=== PATIENT | male | born 1965 | race African-American/Black ===

== ENCOUNTER 2021-11-05 19:33 | Emergency (ER) | payer MEDICAID, OTHER ==
[~2021-11-05] VITALS: Ht 172.7 cm; Wt 86.2 kg
[2021-11-05] MEDS ORDERED: SODIUM CHLORIDE 0.9% 1,000 ML IV ONE (20:00)
[2021-11-05] MEDS ORDERED: ONDANSETRON HCL 4 MG/2 ML VIAL IV ONE (20:00)
[2021-11-05 20:47] LABS: BUN/Creatinine Ratio 17.3; Calcium 8.7 mg/dL (8.5-10.1); Potassium 4.1 mmol/L (3.5-5.1)
[2021-11-05 23:23] LABS: Basophils # (auto) 0.1 10 ^3/uL (0-0.2); Basophils % (auto) 0.8 % (0.0-2.0); Eosinophils # (auto) 0.5 10 ^3/uL (0-0.8); Eosinophils % (auto) 6.6 % (0.0-7.0); Hematocrit 40.9 % (41.0-53.0); Hemoglobin 13.5 g/dL (13.5-17.5); Lymphocytes # (auto) 2.2 10 ^3/uL (0.4-5.4); Lymphocytes % (auto) 29.8 % (10.0-50.0); Mean Corpuscular Hemoglobin 27.3 pg (28.0-32.0); Mean Corpuscular Hgb Conc. 33.1 g/dL (32.0-36.0); Mean Corpuscular Volume 82.4 fL (80.0-100.0); Monocytes # (auto) 0.8 10 ^3/uL (0-1.3); Monocytes % (auto) 11.4 % (0.0-12.0); Neutrophils # (auto) 3.7 10 ^3/uL (1.6-8.6); Neutrophils % (auto) 51.4 % (37.0-80.0); Nucleated Red Blood Cells % 0.1 %; Red Blood Cells 4.97 10^6/uL (4.5-5.90); White Blood Cell 7.3 10^3/uL (4.4-10.8)
[2021-11-05 23:31] LABS: Urine Bacteria NONE SEEN /hpf (None Seen); Urine Blood Negative /uL (Negative); Urine Mucus FEW (None Seen); Urine Specific Gravity 1.024 (1.001-1.035); Urine WBC 38 /hpf (0 - 3)
[2021-11-06 03:57] VITALS: BP 133/94
== END 2021-11-06 04:00 | disposition home or self-care (01) ==
LOC: ER 19:33
DX: K40.90 Unilateral inguinal hernia, without obstruction or gangrene, not specified as recurrent (principal); K42.9 Umbilical hernia without obstruction or gangrene; R19.7 Diarrhea, unspecified; Z20.822 Contact with and (suspected) exposure to COVID-19
CPT/HCPCS: 36415; 74176; 80048; 81001; 82150; 83605; 83690; 84484; 87426; 96361; 96374; 99284; J2405; J7030

== ENCOUNTER 2023-09-07 09:28 | Inpatient (IN) | payer MEDICAID ==
[~2023-09-07] VITALS: Ht 175.3 cm; Wt 84.6 kg
[2023-09-07 10:30] LABS: Basophils # (auto) 0 10 ^3/uL (0-0.2); Basophils % (auto) 0.2 % (0.0-2.0); Eosinophils # (auto) 0 10 ^3/uL (0-0.8); Hematocrit 39.3 % (41.0-53.0); Lymphocytes # (auto) 1.2 10 ^3/uL (0.4-5.4); Lymphocytes % (auto) 7.6 % (10.0-50.0); Mean Corpuscular Hemoglobin 27.6 pg (28.0-32.0); Mean Corpuscular Volume 83.8 fL (80.0-100.0); Monocytes # (auto) 0.8 10 ^3/uL (0-1.3); Neutrophils # (auto) 13.9 10 ^3/uL (1.6-8.6); Neutrophils % (auto) 87.2 % (37.0-80.0); Red Blood Cells 4.69 10^6/uL (4.5-5.90); Red Cell Distribution Width 14.4 % (11.8-14.3); White Blood Cell 15.9 10^3/uL (4.4-10.8)
[2023-09-07 10:53] LABS: INR 1.26 (0.9-1.15)
[2023-09-07 11:02] LABS: Alanine Aminotransferase 20 U/L (7-40); Alkaline Phosphatase 55 U/L (46-116); Anion Gap 4 (5-15); BUN/Creatinine Ratio 12.6 (10.0-20.0); Blood Urea Nitrogen 18 mg/dL (9-23); Carbon Dioxide 28 mmol/L (20-30); Chloride 106 mmol/L (98-107); Glucose 153 mg/dL (74-106); Potassium 3.5 mmol/L (3.5-5.1); Sodium 138 mmol/L (136-145)
[2023-09-07 11:03] LABS: Albumin 3.9 g/dL (3.2-4.8); Aspartate Aminotransferase 20 U/L (13-40); Bilirubin, Total 0.7 mg/dL (0.2-1.0); Total Protein 6.8 g/dL (5.7-8.2)
[2023-09-07] MEDS: IOHEXOL 350 MG/ML 100ML IJ ONE (11:36)
[2023-09-07 11:38] VITALS: O2SAT 96
[2023-09-07] MEDS: cefTRIAXone 1GM/50ML D5W 50 ML IV ONE (12:27)
[2023-09-07] MEDS: AZITHROMYCIN 500MG/ 250ML 250 ML IV ONE (12:56)
[2023-09-07 13:01] LABS: COVID19 ANTIGEN SOFIA FIA NEGATIVE (NEGATIVE)
[2023-09-07 13:02] LABS: Rapid Influenza A Negative (Negative); Rapid Influenza B Negative (Negative)
[2023-09-07] MEDS: SODIUM CHLORIDE 0.9% 2,000 ML IV ONE (15:11)
[2023-09-07] MEDS: ACETAMINOPHEN 325 MG TAB PO ONE ×2 (15:11)
[2023-09-07 15:15] LABS: Urine Bacteria NONE SEEN /hpf (None Seen); Urine Blood TRACE /uL (Negative); Urine Clarity Clear (Clear); Urine Color Colorless (Yellow); Urine Protein, UAD 1+ (Negative); Urine Urobilinogen Normal (Negative); Urine WBC 2 /hpf (0 - 3)
[2023-09-07 15:20] LABS: Urine Specific Gravity > 1.050 (1.001-1.035)
[2023-09-07] MEDS ORDERED: NITROGLYCERIN 0.4 MG SL TAB SL PRN (17:30)
[2023-09-07] MEDS ORDERED: VANCOMYCIN PER PHARMACY 0 MG IV SCH (17:30)
[2023-09-07] MEDS ORDERED: MORPHINE SULFATE INJ 2 MG/ml SYRG IV PRN (17:30)
[2023-09-07] MEDS: ENOXAPARIN SOD 40 MG/0.4 ML SYRINGE SC ONE (17:30)
[2023-09-07] MEDS: MEROPENEM 1GM IVPB 50 ML IV ONE (17:41)
[2023-09-07] MEDS: VANCOMYCIN 1GM/200ML 200 ML IV ONE (17:50)
[2023-09-07] MEDS: SODIUM CHLORIDE 0.9% 1,000 ML IV SCH (18:51)
[2023-09-07] MEDS ORDERED: DEXTROSE (50%) 50ML SYRG IV PRN (19:15)
[2023-09-07 19:48] VITALS: PULSE 98; RESP 27; O2SAT 95
[2023-09-07 20:28] LABS: Magnesium 1.9 mg/dL (1.6-2.6)
[2023-09-07 20:53] LABS: Erythrocyte Sedimentation Rate 21 mm/hr (0-20)
[2023-09-07] MEDS: InsuLIN REG 1unit/0.01ml Soln (100units/ml) SC SCH (22:00)
[2023-09-07] MEDS: ACCU-CHEK COMFORT CURVE STRIP VI SCH (22:28)
[2023-09-07] MEDS: NYSTATIN (MOUTH-THROAT) 500,000 UNITS/5 ML SUSP MT SCH (23:17)
[2023-09-08] VITALS (7 sets, daily range): BP systolic 115–134; BP diastolic 63–88; PULSE 78–99; RESP 16–20; TEMP 97.6–98.6; O2SAT 91–99
[2023-09-08 01:28] LABS: Creatinine, Urine 102.72 mg/dL (30.0-125.0)
[2023-09-08] MEDS: MEROPENEM 1GM IVPB 50 ML IV SCH (01:46)
[2023-09-08 05:47] LABS: Basophils # (auto) 0 10 ^3/uL (0-0.2); Basophils % (auto) 0.1 % (0.0-2.0); Eosinophils # (auto) 0 10 ^3/uL (0-0.8); Eosinophils % (auto) 0.3 % (0.0-7.0); Hematocrit 36.2 % (41.0-53.0); Hemoglobin 11.8 g/dL (13.5-17.5); Lymphocytes # (auto) 1.1 10 ^3/uL (0.4-5.4); Lymphocytes % (auto) 8.2 % (10.0-50.0); Mean Corpuscular Hemoglobin 27.3 pg (28.0-32.0); Mean Corpuscular Hgb Conc. 32.6 g/dL (32.0-36.0); Monocytes # (auto) 0.8 10 ^3/uL (0-1.3); Monocytes % (auto) 5.8 % (0.0-12.0); Neutrophils # (auto) 11.8 10 ^3/uL (1.6-8.6); Neutrophils % (auto) 85.6 % (37.0-80.0); Red Blood Cells 4.31 10^6/uL (4.5-5.90); Red Cell Distribution Width 14.1 % (11.8-14.3); White Blood Cell 13.8 10^3/uL (4.4-10.8)
[2023-09-08 06:15] LABS: Alanine Aminotransferase 16 U/L (7-40); Albumin 3.4 g/dL (3.2-4.8); Alkaline Phosphatase 64 U/L (46-116); Anion Gap 6 (5-15); Aspartate Aminotransferase 14 U/L (13-40); BUN/Creatinine Ratio 14.6 (10.0-20.0); Blood Urea Nitrogen 14 mg/dL (9-23); Calcium 8.6 mg/dL (8.7-10.4); Carbon Dioxide 23 mmol/L (20-30); Chloride 111 mmol/L (98-107); Glucose 116 mg/dL (74-106); Potassium 3.4 mmol/L (3.5-5.1); Sodium 140 mmol/L (136-145)
[2023-09-08 06:16] LABS: Bilirubin, Total 0.4 mg/dL (0.2-1.0)
[2023-09-08 09:08] LABS: Hepatitis B Core Total AB Negative (Negative)
[2023-09-08 09:29] LABS: Free T3 2.07 pg/mL (2.3-4.2)
[2023-09-08 09:31] LABS: Free T4 (Free Thyroxine) 0.87 ng/dL (0.89-1.76)
[2023-09-08] MEDS: POTASSIUM CHL 10 Meq TABLET PO ONE (10:58)
[2023-09-08] MEDS: AZITHROMYCIN 250 MG TAB PO SCH (10:58)
[2023-09-08] MEDS: ENOXAPARIN SOD 40 MG/0.4 ML SYRINGE SC SCH (10:59)
[2023-09-08 11:22] LABS: Hepatitis A Total Antibody Negative (Negative); Hepatitis B Surface Antibody Negative (Negative); Hepatitis B Surface Antigen Negative (Negative); Hepatitis C Antibody Negative (Negative)
[2023-09-08] MEDS: ACETAMINOPHEN 500 MG TAB PO PRN (12:17)
[2023-09-08] MEDS: VANCOMYCIN 1GM/200ML 200 ML IV SCH (18:06)
[2023-09-08] MEDS: HYDROcodone-ACET 5/325MG TAB PO PRN (21:32)
[2023-09-08] MEDS: TEMAZEPAM 15 MG CAP PO PRN (21:47)
[2023-09-09] VITALS (8 sets, daily range): BP systolic 108–144; BP diastolic 61–91; PULSE 70–100; RESP 17–20; TEMP 98.7–99.4; O2SAT 93–100
[2023-09-09 05:52] LABS: Basophils # (auto) 0 10 ^3/uL (0-0.2); Basophils % (auto) 0.1 % (0.0-2.0); Eosinophils # (auto) 0.2 10 ^3/uL (0-0.8); Eosinophils % (auto) 1.5 % (0.0-7.0); Hematocrit 37.5 % (41.0-53.0); Hemoglobin 12.1 g/dL (13.5-17.5); Lymphocytes # (auto) 1.2 10 ^3/uL (0.4-5.4); Lymphocytes % (auto) 9.7 % (10.0-50.0); Mean Corpuscular Hemoglobin 27.3 pg (28.0-32.0); Mean Corpuscular Hgb Conc. 32.4 g/dL (32.0-36.0); Mean Corpuscular Volume 84.2 fL (80.0-100.0); Monocytes # (auto) 0.8 10 ^3/uL (0-1.3); Monocytes % (auto) 6.3 % (0.0-12.0); Neutrophils % (auto) 82.4 % (37.0-80.0); Red Blood Cells 4.45 10^6/uL (4.5-5.90); Red Cell Distribution Width 14.1 % (11.8-14.3); White Blood Cell 12.1 10^3/uL (4.4-10.8)
[2023-09-09 05:57] LABS: Anion Gap 5 (5-15); Carbon Dioxide 23 mmol/L (20-30); Chloride 112 mmol/L (98-107); Potassium 4.1 mmol/L (3.5-5.1); Sodium 140 mmol/L (136-145)
[2023-09-09 05:59] LABS: Calcium 8.7 mg/dL (8.7-10.4)
[2023-09-09 06:03] LABS: BUN/Creatinine Ratio 12.7 (10.0-20.0); Blood Urea Nitrogen 10 mg/dL (9-23); Glucose 128 mg/dL (74-106)
[2023-09-09 06:04] LABS: Magnesium 1.8 mg/dL (1.6-2.6)
[2023-09-09 19:06] LABS: Chlamydia Trachomatis, NAA Negative (Negative); Neisseria gonorrhoeae, NAA Negative (Negative)
[2023-09-10] VITALS (7 sets, daily range): BP systolic 128–147; BP diastolic 78–82; PULSE 56–76; RESP 17–21; TEMP 97.9–98.9; O2SAT 93–98
[2023-09-10 06:14] LABS: Anion Gap 6 (5-15); Carbon Dioxide 24 mmol/L (20-30); Chloride 112 mmol/L (98-107); Potassium 3.9 mmol/L (3.5-5.1); Sodium 142 mmol/L (136-145)
[2023-09-10 06:15] LABS: Basophils # (auto) 0 10 ^3/uL (0-0.2); Basophils % (auto) 0.3 % (0.0-2.0); Calcium 8.3 mg/dL (8.7-10.4); Eosinophils # (auto) 0.3 10 ^3/uL (0-0.8); Eosinophils % (auto) 4.9 % (0.0-7.0); Hematocrit 36.3 % (41.0-53.0); Hemoglobin 12.1 g/dL (13.5-17.5); Lymphocytes # (auto) 1.4 10 ^3/uL (0.4-5.4); Lymphocytes % (auto) 20.2 % (10.0-50.0); Mean Corpuscular Hemoglobin 27.7 pg (28.0-32.0); Mean Corpuscular Hgb Conc. 33.2 g/dL (32.0-36.0); Mean Corpuscular Volume 83.5 fL (80.0-100.0); Monocytes # (auto) 0.7 10 ^3/uL (0-1.3); Neutrophils # (auto) 4.4 10 ^3/uL (1.6-8.6); Neutrophils % (auto) 64.6 % (37.0-80.0); Red Blood Cells 4.35 10^6/uL (4.5-5.90); Red Cell Distribution Width 13.7 % (11.8-14.3); White Blood Cell 6.8 10^3/uL (4.4-10.8)
[2023-09-10 06:20] LABS: BUN/Creatinine Ratio 10.3 (10.0-20.0); Blood Urea Nitrogen 9 mg/dL (9-23); Glucose 101 mg/dL (74-106); Magnesium 1.8 mg/dL (1.6-2.6)
[2023-09-10 11:26] LABS: Basophils # (auto) 0 10 ^3/uL (0-0.2); Basophils % (auto) 0.3 % (0.0-2.0); Eosinophils # (auto) 0.3 10 ^3/uL (0-0.8); Eosinophils % (auto) 4.9 % (0.0-7.0); Hematocrit 37.8 % (41.0-53.0); Hemoglobin 12.3 g/dL (13.5-17.5); Lymphocytes % (auto) 16.7 % (10.0-50.0); Mean Corpuscular Hemoglobin 27.3 pg (28.0-32.0); Mean Corpuscular Hgb Conc. 32.6 g/dL (32.0-36.0); Mean Corpuscular Volume 83.8 fL (80.0-100.0); Monocytes # (auto) 0.8 10 ^3/uL (0-1.3); Monocytes % (auto) 13.3 % (0.0-12.0); Neutrophils % (auto) 64.8 % (37.0-80.0); Red Blood Cells 4.51 10^6/uL (4.5-5.90); Red Cell Distribution Width 13.9 % (11.8-14.3); White Blood Cell 6.1 10^3/uL (4.4-10.8)
[2023-09-10 11:35] LABS: Anion Gap 5 (5-15); Carbon Dioxide 25 mmol/L (20-30); Chloride 109 mmol/L (98-107); Potassium 4.1 mmol/L (3.5-5.1); Sodium 139 mmol/L (136-145)
[2023-09-10 11:40] LABS: Glucose 111 mg/dL (74-106)
[2023-09-10 11:41] LABS: Blood Urea Nitrogen 10 mg/dL (9-23); Magnesium 1.8 mg/dL (1.6-2.6)
[2023-09-10] MEDS: amLODIPine BESYLATE 5 MG TAB PO ONE (17:55)
[2023-09-10] MEDS: AMPICILLIN & SULBACTAM SODIUM 3 GM in SODIUM CHL 0.9% 100 ML IV SCH (22:01)
[2023-09-11] VITALS (7 sets, daily range): BP systolic 132–147; BP diastolic 82–98; PULSE 64–80; RESP 16–19; TEMP 97.6–99.1; O2SAT 93–100
[2023-09-11] MEDS: VANCOMYCIN 1GM/200ML 200 ML IV SCH (03:40)
[2023-09-11 05:50] LABS: Basophils # (auto) 0 10 ^3/uL (0-0.2); Basophils % (auto) 0.4 % (0.0-2.0); Eosinophils # (auto) 0.3 10 ^3/uL (0-0.8); Eosinophils % (auto) 5.6 % (0.0-7.0); Hematocrit 37.4 % (41.0-53.0); Hemoglobin 12.4 g/dL (13.5-17.5); Lymphocytes # (auto) 1.4 10 ^3/uL (0.4-5.4); Lymphocytes % (auto) 22.5 % (10.0-50.0); Mean Corpuscular Hemoglobin 27.5 pg (28.0-32.0); Mean Corpuscular Hgb Conc. 33.2 g/dL (32.0-36.0); Mean Corpuscular Volume 82.6 fL (80.0-100.0); Monocytes # (auto) 0.8 10 ^3/uL (0-1.3); Neutrophils # (auto) 3.5 10 ^3/uL (1.6-8.6); Neutrophils % (auto) 57.5 % (37.0-80.0); Nucleated Red Blood Cells % 0.1 %; Red Blood Cells 4.53 10^6/uL (4.5-5.90); Red Cell Distribution Width 13.7 % (11.8-14.3); White Blood Cell 6.1 10^3/uL (4.4-10.8)
[2023-09-11 05:55] LABS: Chloride 108 mmol/L (98-107); Potassium 3.5 mmol/L (3.5-5.1); Sodium 139 mmol/L (136-145)
[2023-09-11 05:56] LABS: Anion Gap 6 (5-15); Calcium 8.9 mg/dL (8.5-10.1); Carbon Dioxide 25 mmol/L (20-30)
[2023-09-11 06:01] LABS: BUN/Creatinine Ratio 11.3 (10.0-20.0); Blood Urea Nitrogen 9 mg/dL (9-23); Glucose 132 mg/dL (74-106); Triglycerides 121 mg/dL (< 150)
[2023-09-11 06:02] LABS: LDL Cholesterol 62 mg/dL (< 100)
[2023-09-11 06:03] LABS: Cholesterol 101 mg/dL (< 200); HDL Cholesterol 24 mg/dL (40-59)
[2023-09-11 06:12] LABS: Magnesium 1.8 mg/dL (1.6-2.6)
[2023-09-11] MEDS: amLODIPine BESYLATE 5 MG TAB PO SCH (09:59)
[2023-09-11] MEDS: ACETAMINOPHEN 500 MG TAB PO PRN (18:40)
[2023-09-11] MEDS: ONDANSETRON ODT 4 MG TAB PO PRN (19:45)
[2023-09-12] VITALS (7 sets, daily range): BP systolic 125–137; BP diastolic 75–98; PULSE 71–90; RESP 16–18; TEMP 97.7–98.7; O2SAT 95–98
[2023-09-12] MEDS: IOHEXOL 300 MG/ML 100ML BOTTLE IJ ONE (10:02)
[2023-09-13] VITALS (7 sets, daily range): BP systolic 135–143; BP diastolic 79–96; PULSE 67–85; RESP 18–20; TEMP 97.9–98.7; O2SAT 97–99
[2023-09-13 06:22] LABS: Hematocrit 37.3 % (41.0-53.0); Hemoglobin 12.1 g/dL (13.5-17.5); Mean Corpuscular Hemoglobin 27.1 pg (28.0-32.0); Mean Corpuscular Hgb Conc. 32.5 g/dL (32.0-36.0); Mean Corpuscular Volume 83.4 fL (80.0-100.0); Red Blood Cells 4.47 10^6/uL (4.5-5.90); White Blood Cell 5.1 10^3/uL (4.4-10.8)
[2023-09-13 06:32] LABS: Alanine Aminotransferase 74 U/L (7-40); Albumin 3.5 g/dL (3.2-4.8); Alkaline Phosphatase 54 U/L (46-116); Anion Gap 9 (5-15); Aspartate Aminotransferase 51 U/L (13-40); BUN/Creatinine Ratio 13.6 (10.0-20.0); Blood Urea Nitrogen 12 mg/dL (9-23); Carbon Dioxide 25 mmol/L (20-30); Chloride 106 mmol/L (98-107); Glucose 133 mg/dL (74-106); Magnesium 1.9 mg/dL (1.6-2.6); Potassium 3.7 mmol/L (3.5-5.1); Sodium 140 mmol/L (136-145)
[2023-09-13 06:33] LABS: Bilirubin, Total 0.3 mg/dL (0.2-1.0); Total Protein 6.4 g/dL (5.7-8.2)
[2023-09-13 07:22] LABS: Basophils % (manual) 0 (0.0-2.0); Blast Cells 0; Metamyelocytes % 0; Promyelocytes % 0; Reactive Lymphocytes 0
[2023-09-13 09:13] LABS: Band Neutrophils % (manual) 2; Eosinophils % (manual) 5 (0-7); Lymphocytes % (manual) 23 (10.0-50.0); Monocytes % (manual) 17 (0-12); Myelocytes % 1; Platelet Estimate Adequate; RBC Morphology Normal
[2023-09-13] MEDS: DOXYCYCLINE 100 MG TAB/CAP PO SCH (09:43)
[2023-09-14 05:00] VITALS: BP 136/89; PULSE 75; RESP 18; TEMP 98; O2SAT 98
[2023-09-14 06:03] LABS: Hematocrit 39.6 % (41.0-53.0); Hemoglobin 12.9 g/dL (13.5-17.5); Mean Corpuscular Hemoglobin 27.3 pg (28.0-32.0); Mean Corpuscular Hgb Conc. 32.7 g/dL (32.0-36.0); Mean Corpuscular Volume 83.7 fL (80.0-100.0); Red Blood Cells 4.73 10^6/uL (4.5-5.90); Red Cell Distribution Width 13.9 % (11.8-14.3); White Blood Cell 4.9 10^3/uL (4.4-10.8)
[2023-09-14 06:05] LABS: Basophils % (manual) 0 (0.0-2.0); Blast Cells 0; Metamyelocytes % 0; Myelocytes % 0; Promyelocytes % 0; Reactive Lymphocytes 0
[2023-09-14 06:10] LABS: Alanine Aminotransferase 77 U/L (7-40); Alkaline Phosphatase 58 U/L (46-116); Anion Gap 9 (5-15); BUN/Creatinine Ratio 16.5 (10.0-20.0); Blood Urea Nitrogen 14 mg/dL (9-23); Carbon Dioxide 25 mmol/L (20-30); Chloride 107 mmol/L (98-107); Glucose 109 mg/dL (74-106); Magnesium 1.9 mg/dL (1.6-2.6); Potassium 3.7 mmol/L (3.5-5.1); Sodium 141 mmol/L (136-145)
[2023-09-14 06:11] LABS: Albumin 3.5 g/dL (3.2-4.8); Aspartate Aminotransferase 43 U/L (13-40)
[2023-09-14 06:12] LABS: Bilirubin, Total 0.3 mg/dL (0.2-1.0); Total Protein 6.4 g/dL (5.7-8.2)
[2023-09-14 06:22] LABS: Band Neutrophils % (manual) 4; Eosinophils % (manual) 7 (0-7); Lymphocytes % (manual) 32 (10.0-50.0); Monocytes % (manual) 18 (0-12); Platelet Estimate Adequate
[2023-09-14 08:00] VITALS: BP 138/77; PULSE 72; PULSE 75; PULSE 78; RESP 18; RESP 20; TEMP 98.3; O2SAT 96
[2023-09-14 12:00] VITALS: BP 129/87; PULSE 80; RESP 20; TEMP 98.5; O2SAT 97
[2023-09-14] MEDS: HYDROcodone-ACET 5/325MG TAB PO PRN (12:58)
[2023-09-14 16:00] VITALS: BP 148/87; PULSE 83; RESP 18; TEMP 98.2; O2SAT 97
[2023-09-14 20:00] VITALS: PULSE 80; PULSE 91; RESP 20
[2023-09-14 21:00] VITALS: BP 135/97; PULSE 88; RESP 20; TEMP 98.2; O2SAT 97
[2023-09-14] MEDS: TEMAZEPAM 15 MG CAP PO PRN (21:16)
[2023-09-15] VITALS (8 sets, daily range): BP systolic 126–146; BP diastolic 79–95; PULSE 68–89; RESP 19–20; TEMP 97.4–99.3; O2SAT 95–97
[2023-09-16] VITALS (8 sets, daily range): BP systolic 119–148; BP diastolic 59–95; PULSE 75–97; RESP 14–20; TEMP 97.6–98.9; O2SAT 96–98
[2023-09-17] VITALS (8 sets, daily range): BP systolic 125–160; BP diastolic 73–99; PULSE 66–89; RESP 14–18; TEMP 97.9–98.4; O2SAT 93–98
[2023-09-18] VITALS (8 sets, daily range): BP systolic 123–155; BP diastolic 79–95; PULSE 76–85; RESP 16–21; TEMP 97.8–98.1; O2SAT 97–99
[2023-09-19] VITALS (8 sets, daily range): BP systolic 134–145; BP diastolic 86–100; PULSE 79–88; RESP 16–18; TEMP 97.8–98.8; O2SAT 96–98
[2023-09-19] MEDS: PENICILLIN G BENZ 1,200,000 UNITS/2 ML SYRG IM SCH (16:02)
[2023-09-20] VITALS (7 sets, daily range): BP systolic 126–133; BP diastolic 83–87; PULSE 68–93; RESP 18–22; TEMP 98–98.4; O2SAT 96–99
[2023-09-21] MEDS: hydrALAZINE HCL 20 MG/ML VL IV PRN (04:26)
[2023-09-21 05:00] VITALS: BP 153/89; PULSE 83; RESP 18; TEMP 97.8; O2SAT 98
== END 2023-09-21 06:00 | disposition short-term general hospital (02) | DRG 720 ==
LOC: ER 09:28 → TELE 17:21 → TELE-WESTW 22:33
PROVIDERS: ADMIT Internal Medicine Geriatric Medicine; ATTEND Internal Medicine Geriatric Medicine
DX: A41.9 Sepsis, unspecified organism (principal); J96.01 Acute respiratory failure with hypoxia; N17.0 Acute kidney failure with tubular necrosis; J69.0 Pneumonitis due to inhalation of food and vomit; J15.69 Pneumonia due to other Gram-negative bacteria; E11.9 Type 2 diabetes mellitus without complications; B37.0 Candidal stomatitis; I10 Essential (primary) hypertension; E78.5 Hyperlipidemia, unspecified; J98.11 Atelectasis; E07.81 Sick-euthyroid syndrome
CPT/HCPCS: 36415; 70450; 70486; 70488; 70491; 71045; 71275; 74176; 76775; 80048; 80053; 80061; 80202; 81001; 82550; 82565; 82570; 82962; 83036; 83690; 83735; 83880; 84133; 84153; 84300; 84439; 84443; 84481; 84484; 85007; 85025; 85027; 85379; 85610; 85652; 86141; 86256; 86592; 86703; 86704; 86706; 86708; 86803; 87040; 87070; 87081; 87205; 87340; 87426; 87556; 87804; 93005; 93306; 96365; 96367; 96368; 99291; G0378; J1815; J2185; Q0162

== ENCOUNTER 2025-01-11 15:46 | Emergency (ER) | payer MEDICAID ==
[~2025-01-11] VITALS: Ht 172.7 cm; Wt 78.5 kg
[2025-01-11 16:30] LABS: Hematocrit 39.5 % (41.0-53.0); Hemoglobin 13.0 g/dL (13.5-17.5); Mean Corpuscular Hemoglobin 27.9 pg (28.0-32.0); Mean Corpuscular Volume 84.7 fL (80.0-100.0); Nucleated Red Blood Cells % 0.1 %
[2025-01-11 16:40] VITALS: PULSE 116; RESP 20; O2SAT 99
[2025-01-11 16:42] LABS: INR 1.11 (0.9-1.15); Partial Thromboplastin Time 27.8 SEC (24.5-34.5); Prothrombin Time 11.6 sec (9.3-11.8)
[2025-01-11 16:46] LABS: Alanine Aminotransferase 26 U/L (7-40); Albumin 4.2 g/dL (3.2-4.8); Alkaline Phosphatase 72 U/L (46-116); Anion Gap 9 (5-15); BUN/Creatinine Ratio 15.4 (10.0-20.0); Bilirubin, Total 0.7 mg/dL (0.2-1.0); Blood Urea Nitrogen 19 mg/dL (9-23); Calcium 9.8 mg/dL (8.7-10.4); Carbon Dioxide 30 mmol/L (20-31); Chloride 101 mmol/L (98-107); Glucose 135 mg/dL (74-106); Potassium 4.0 mmol/L (3.5-5.1); Sodium 140 mmol/L (136-145); Total Protein 7.1 g/dL (5.7-8.2)
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
--- NOTE | 2025-01-11 16:59 | DVH ---
INDICATION: WOUND/SWELLING TECHNIQUE: 4 views of the left hand were obtained. COMPARISON: None FINDINGS/IMPRESSION: Comminuted fracture of the 5th middle phalanx. There is associated moderate soft tissue swelling and soft tissue contusion. No dislocations. Diffuse soft tissue edema about the hand. Scattered mild dege nerative changes.
--- NOTE | 2025-01-11 17:06 | DVH ---
CT HEAD WITHOUT CONTRAST Indication: eye injury EXAM DATE: 01/11/2025 04:22 PM COMPARISON: CT HEAD WITHOUT CONTRAST on DOS: 09/07/23 TECHNIQUE:CT of the head, orbits without intravenous contrast. RADIATION DOSE: CTDIvol: 57.5 mGy, DLP: 1018 mGy*cm FINDINGS: There is no intracranial hemorrhage. There is no extra-axial fluid, mass, mass effect or midline shif t. The ventricles are midline and normal in size. Basilar cisterns are patent. Deleon-white differentia tion is maintained. Right orbital preseptal edema. No evidence for postseptal extension. The right orbital lens appears t o be displaced anteriorly within the right orbital globe. The extraocular muscles are unremarkable. Mastoids well pneumatized. Mucosal thickening of the ethmoids, right maxillary sinus. IMPRESSION: Extensive Right orbital preseptal edema. No evidence for postseptal extension. Close correlate for c ellulitis, traumatic etiologies. Right orbital lens appears to be displaced anteriorly in the right orbital globe. Recommend ophthalmo logy consultation for further evaluation. No intracranial hemorrhage or mass effect.
[2025-01-11] MEDS: ACETAMINOPHEN 500 MG TAB or CAP PO ONE (17:12)
--- NOTE | 2025-01-11 17:12 | DVH ---
HISTORY: eye injury TECHNIQUE: Nonenhanced axial images through the facial bones with coronal and sagittal MPR. CT Dose: CTDI volume is 66.73 mGy. Dose-length product is 1375.55 mGy*cm COMPARISON: CT MAXILLOFACIAL WITHOUT on DOS: 09/07/23 Findings: Trace paranasal sinus fluid. Please refer to concurrent CT orbit exam for detailed evaluation of the right orbit. Mild right pre septal soft tissue swelling. The orbital bones are intact. No blowout fracture. No postseptal fluid o r inflammation. Orbital muscles are intact. The nasal bone is not fractured. The nasal septum is not fractured. The pterygoid plates are intact. The zygomatic arches are intact. The visualized mandible, and upper cervical spine do not appear fractured. Question mild soft tissue edema overlying the anterior mandible/chin. Impression: 1. Please refer to concurrent CT orbit exam for detailed evaluation of the right orbit. 2. No acute facial bone fractures.
[2025-01-11] MEDS: LACTATED RINGER'S 2,050 ML IV ONE (17:35)
[2025-01-11] MEDS: VANCOMYCIN 1GM/200ML PM 200 ML IV ONE (17:38)
[2025-01-11 18:11] LABS: Urine Protein, UAD Negative (Negative)
--- NOTE | 2025-01-11 18:13 | DVH ---
CHEST RADIOGRAPH Indication: sepsis Technique: Single frontal view of the chest was obtained Comparison: XY CHEST XRAY 1 VIEW on DOS: 09/07/23 FINDINGS: Lines and Tubes: None Lungs: No focal consolidation. Pleura: No effusion. No pneumothorax. Cardiomediastinal contours: Unremarkable Bones: No acute osseous abnormality. IMPRESSION: No acute cardiopulmonary disease.
[2025-01-11 18:27] LABS: Amphetamine Screen, Urine Pos (NEGATIVE); Barbiturate Scree,Urine Neg (NEGATIVE); Benzodiazephine Screen, Urine Neg (NEGATIVE); Cannabinoid Screen, Urine Neg (NEGATIVE); Cocaine Screen, Urine Neg (NEGATIVE); Opiate Scree,Urine Neg (NEGATIVE); Phencyclidine Screen, Urine Neg (NEGATIVE)
[2025-01-11] MEDS: PIPERACILLIN-TAZOB 3.375GM 100 ML IV ONE (18:38)
[2025-01-11 18:45] LABS: INR 1.15 (0.9-1.15); Partial Thromboplastin Time 28.3 SEC (24.5-34.5); Prothrombin Time 12.0 sec (9.3-11.8)
[2025-01-11] MEDS: fentaNYL CITRATE 100 MCG/2 ML VL IV ONE (19:00)
[2025-01-11 19:38] VITALS: PULSE 69; RESP 20; O2SAT 93
[2025-01-11 20:14] VITALS: TEMP 101
[2025-01-11 21:55] VITALS: BP 160/99; PULSE 80; RESP 20; O2SAT 100
== END 2025-01-11 21:24 | disposition short-term general hospital (02) ==
LOC: ER 15:46
DX: S62.627A Displaced fracture of middle phalanx of left little finger, initial encounter for closed fracture (principal); S51.811A Laceration without foreign body of right forearm, initial encounter; S60.222A Contusion of left hand, initial encounter; S01.111A Laceration without foreign body of right eyelid and periocular area, initial encounter; A41.9 Sepsis, unspecified organism; F15.10 Other stimulant abuse, uncomplicated; L03.114 Cellulitis of left upper limb; H27.10 Unspecified dislocation of lens; Z79.899 Other long term (current) drug therapy; Y08.89XA Assault by other specified means, initial encounter; Y93.89 Activity, other specified; Y92.89 Other specified places as the place of occurrence of the external cause; Y99.8 Other external cause status
CPT/HCPCS: 36415; 70450; 70480; 70486; 71045; 73120; 80053; 80307; 81001; 82947; 83605; 84484; 85025; 85610; 85730; 87040; 96365; 96367; 96375; 99285; J2543; J3010; J3373; 82962